=== PATIENT | female | born 1970 | race African-American/Black ===

== ENCOUNTER 2024-08-30 18:29 | Emergency (ER) | payer MEDICAID ==
[~2024-08-30] VITALS: Ht 165.1 cm; Wt 99.3 kg
--- NOTE | 2024-08-30 18:45 | ED.PDOC ---
Back pain HPI HPI Comments 53-year-old female presents to the ED chief complaint lower back pain x2 days. Patient states history of chronic back pain however she notes nothing has been helping her pain over the past 2 days which usually [id number] Tylenol or Motrin helps. She states no recent injury however does note has never had any imaging done on her back in his concern that she may have a fracture from past fall. Denies numbness, weakness, saddle anesthesia, loss of bowel bladder control. 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 History Family History Family History: Unknown Social History Smoker: Non-Smoker Alcohol: Denies ETOH Use Drugs: Denies Drug Use Lives In: Home Constitutional: denies: chills, diaphoresis, fatigue, fever, malaise, sweats, weakness, others EENTM: denies: blurred vision, double vision, ear bleeding, ear discharge, ear drainage, ear pain, ear ringing, eye pain, eye redness, hearing loss, mouth pain, mouth swelling, nasal discharge, nose bleeding, nose congestion, nose pain, photophobia, tearing, throat pain, throat swelling, voice changes, others Cardiovascular: denies: chest pain, dizzy spells, diaphoresis, Dyspnea on exertion, edema, irregular heart beat, left arm pain, lightheadedness, palpitations, PND, syncope, others Gastrointestinal: denies: abdomen distended, abdominal pain, blood streaked bowels, constipated, diarrhea, dysphagia, difficulty swallowing, hematemesis, melena, nausea, poor appetite, poor fluid intake, rectal bleeding, rectal pain, vomiting, others Genitourinary: denies: abnormal vagina bleeding, burning, dyspareunia, dysuria, flank pain, frequency, hematuria, incontinence, pain, , vagina discharge, urgency, others Neurological: denies: dizziness, fainting, headache, left sided numbness, left sided weakness, numbness, paresthesia, pre-existing deficit, right sided numbness, right sided weakness, seizure, speech problems, tingling, tremors, weakness, others Musculoskeletal: reports: back pain Integumetry: denies: bruises, change in color, change in hair/nails, dryness, laceration, lesions, lumps, rash, wounds, others Allergic/Immunocompromised: denies: Difficulty Healing, Frequent Infections, Hives, Itching, others Hematologic/Lymphatic: denies: anemia, blood clots, easy bleeding, easy bruising, swollen glands, others Endocrine: denies: excessive hunger, excessive sweating, excessive thirst, excessive urination, flushing, intolerance to cold, intolerance to heat, unexplained weight gain, unexplained weight loss, others Psychiatric: denies: anxiety, bipolar disorder, depression, hopeless, panic disorder, schizophrenia, sleepless, suicidal, others Physical Exam General Appearance: No Apparent Distress, Normal HEENT: Pharynx Normal Neck: Full Range of Motion, Non-Tender Respiratory: Chest Non-Tender, Lungs Clear, No Respiratory Distress, Normal Breath Sounds Cardiovascular: No Murmur, Normal Peripheral Pulses, Regular Rate/Rhythm Breast Exam: Deferred Gastrointestinal: No Organomegaly, Non Tender, Soft Genitalia: Deferred Pelvic: Deferred Rectal: Deferred Extremities: Normal capillary refill, Normal inspection, Normal range of motion, Non-tender, No pedal edema Musculoskeletal : Location: Bilateral Extremity Location: Back (Moderate tenderness palpated over bilateral lower back musculature. Tenderness palpated over L4-5 lumbar spine without crepitus or step-offs. No saddle anesthesia. Negative straight leg raise bilateral. Strength sensory motion intact.) Apperance: Normal Neurologic: Alert, No Motor Deficits, Normal Affect, Normal Mood, No Sensory Deficits Cerebellar Function: Normal Reflexes: Normal Skin: Dry, Normal Color, Warm Lymphatic: No Adenopathy Was a procedure done? Was a procedure done?: No Back Pain Differential Dx Differential Diagnosis: Fracture, Musculoskeletal Pain, Strain X-Ray, Labs, Meds, VS Vital Signs Date Time Temp Pulse Resp B/P (MAP) Pulse Ox O2 Delivery O2 Flow Rate FiO2 08/30/24 19:02 97.9 10 16 112/78 (89) 98 97.9 08/30/24 19:02 74 16 98 Room Air 08/30/24 18:38 97.7 76 16 151/94 (113) 98 97.7 Current Medications Medications (Trade) Dose Ordered Sig/Dawson Route Start Time Stop Time Status Last Admin Dexamethasone Sodium Phosphate (Decadron Injection) 10 mg ONCE ONCE IM 08/30/24 18:45 08/30/24 18:46 DC 08/30/24 20:04 Acetaminophen/ Hydrocodone Bitart ([place] 10/325MG Tab) 1 tab ONCE ONCE PO 08/30/24 18:45 08/30/24 18:46 DC 08/30/24 20:06 X-Ray, Labs, Meds, VS Comment Lumbar spine x-ray shows no acute fractures, subluxations, or osseous lesions. IMPRESSION: 1. No acute findings 2. Mild discogenic degenerative change Patient given Toradol 60 mg IM and Decadron 10 mg IM and [place] 5 mg p.o. reports improvement in pain and function requesting discharge at this time. Script tr ial of Medrol Dosepak along with muscle relaxer PRN advised to take medications as prescribed side effects discussed. Follow up with your PCP in 2-3 days as necessary consider further imaging such as MRI or referral to physical therapy if symptoms persist. ER return precautions given patient indicates understanding agrees with discharge plan of care. Time of 1ST Reevaluation: 18:44 Reevaluation 1ST: Unchanged Time of 2ND Reevaluation: 20:09 Reevaluation 2ND: Improved Patient Education/Counseling: Diagnosis, Treatment, Prognosis, Need For Follow Up Family Education/Counseling: Diagnosis, Treatment, Prognosis, Need For Follow Up SEPSIS Sepsis Screen Physician Orders Lumbar Spine 3 View (08/30/24 18:40) Vital Signs Date Time Temp Pulse Resp B/P (MAP) Pulse Ox O2 Delivery O2 Flow Rate FiO2 08/30/24 19:02 97.9 10 16 112/78 (89) 98 97.9 08/30/24 19:02 74 16 98 Room Air 08/30/24 18:38 97.7 76 16 151/94 (113) 98 97.7 Medications Medications Dose Ordered Sig/Dawson Route Start Time Stop Time Status Last Admin Dose Admin Acetaminophen/ Hydrocodone Bitart 1 tab ONCE ONCE PO 08/30/24 18:45 08/30/24 18:46 DC 08/30/24 20:06 Dexamethasone Sodium Phosphate 10 mg ONCE ONCE IM 08/30/24 18:45 08/30/24 18:46 DC 08/30/24 20:04 Departure 1 Departure Time of Disposition: 20:10 Impression: Primary Impression: Lumbar sprain Qualified Codes: S33.5XXA - Sprain of ligaments of lumbar spine, initial encounter Disposition: HOME / SELF CARE / HOMELESS Condition: Stable e-Prescriptions Tizanidine Hydrochloride (Tizanidine Hcl) 4 Mg Tab 4 MG PO BID PRN for 7 Days, #14 TAB Prov: LAMAR PHOENIX 08/30/24 Methylprednisolone (Medrol Dosepak) 4 Mg Willis 4 MG PO UD for 6 Days, #21 TAB UAD Prov: LAMAR PHOENIX 08/30/24 Discharged With: Relative (Sibling) Critical Care Note Critical Care Time?: No Stability Stability form required: No LAMAR PHOENIX Aug 30, 2024 18:45
[2024-08-30 19:02] VITALS: BP 112/78; PULSE 74; RESP 16; TEMP 97.9; O2SAT 98
--- NOTE | 2024-08-30 19:36 | DVH ---
EXAM: XY LUMBAR SPINE 3 VIEW HISTORY: LOW BACK PAIN COMPARISON: None TECHNIQUE: AP and lateral views of the lumbar spine and spot lateral of the lumbosacral junction were performed. FINDINGS: No fracture or listhesis of the lumbar spine. There is mild disc space narrowing from L2-L4 with sma ll marginal osteophytes. IMPRESSION: 1. No acute findings 2. Mild discogenic degenerative change
[2024-08-30] MEDS: HYDROcodone-ACET 10/325MG TAB PO ONE (20:06)
[2024-08-30] MEDS ORDERED: METH4PAK PO (20:11)
[2024-08-30] MEDS ORDERED: TIZA-142 PO (20:11)
== END 2024-08-30 20:20 | disposition home or self-care (01) ==
LOC: ER 18:29
DX: S33.5XXA Sprain of ligaments of lumbar spine, initial encounter (principal); X58.XXXA Exposure to other specified factors, initial encounter; Y93.89 Activity, other specified; Y92.89 Other specified places as the place of occurrence of the external cause; Y99.8 Other external cause status
CPT/HCPCS: 72100; 96372; 99283; J1100